=== PATIENT | female | born 1945 | race Caucasian/White ===

== ENCOUNTER 2018-08-02 09:23 | Emergency (ER) | payer MEDICARE ==
[~2018-08-02] VITALS: Ht 162.6 cm; Wt 79.5 kg
[~2018-08-02 09:23] MED LIST: GLUCOPHAGE500 MG PO; SYNTHROID100 MCG PO; SYNTHROID75 MCG PO
[2018-08-02] MEDS ORDERED: PLAVIX75 MG PO (09:54)
[2018-08-02] MEDS ORDERED: LOPRESSOR25 MG PO (09:54)
[2018-08-02 11:15] VITALS: BP 147/80
== END 2018-08-02 11:15 | disposition home or self-care (01) ==
LOC: ED 09:23
DX: S60.212A Contusion of left wrist, initial encounter (principal); E11.9 Type 2 diabetes mellitus without complications; E03.9 Hypothyroidism, unspecified; I25.2 Old myocardial infarction; W22.09XA Striking against other stationary object, initial encounter; Y93.89 Activity, other specified; Y92.009 Unspecified place in unspecified non-institutional (private) residence as the place of occurrence of the external cause; Z95.5 Presence of coronary angioplasty implant and graft

== ENCOUNTER → 2018-11-10 | Outpatient (REF) | payer MEDICARE ==
[~2018-11-10] MED LIST changes: +LOPRESSOR25 MG PO; +PLAVIX75 MG PO
[2018-11-10 10:39] LABS: CREATININE 1.3 mg/dL (0.5-1.0)
== END | disposition home or self-care (01) ==
LOC: LAB 10:05
PROVIDERS: ATTEND Otolaryngology
DX: N17.8 Other acute kidney failure (principal)